=== PATIENT | male | born 1990 | race Caucasian/White ===

== ENCOUNTER 2020-08-02 10:42 | Outpatient (CLI) | payer BC, SELFPAY ==
--- NOTE | ~2020-08-02 | XR_ITS ---
EXAMINATION: XR knee LT 3V DATE: 08/02/2020 11:18 INDICATION: Left knee pain. TECHNIQUE: 3 views of left knee were obtained. COMPARISON: None. FINDINGS: Bone alignment is normal. No fracture. There is mild tricompartmental osteoarthritis. There is a small knee joint effusion. IMPRESSION: 1. Mild left knee osteoarthritis. 2. Small left knee joint effusion. Reviewed, dictated and finalized at location A.
--- NOTE | ~2020-08-02 | XR_ITS ---
XR shoulder LT min 2V DATE: 08/02/2020 11:18 INDICATION: Left shoulder pain for 6 weeks TECHNIQUE: 4 views COMPARISON: None FINDINGS: No fracture or dislocation, periosteal reaction or bone destruction. Normal alignment at th e acromioclavicular and glenohumeral joints. No abnormal soft tissue calcification is evident. IMPRESSION: Negative Reviewed, dictated and finalized at location B. IMPRESSION: Negative
== END 2020-08-02 10:43 | disposition home or self-care (01) ==
LOC: CHSIMG 10:43
PROVIDERS: PCP Internal Medicine; Visit Provider Internal Medicine
DX: M25.512 Pain in left shoulder (principal); M25.562 Pain in left knee
CPT/HCPCS: 73030; 73562

== ENCOUNTER 2020-09-05 08:58 | Outpatient (CLI) | payer BC, SELFPAY ==
--- NOTE | ~2020-09-05 | MR_ITS ---
EXAMINATION: MR knee LT wo con DATE: 09/05/2020 09:52 INDICATION: Left knee pain TECHNIQUE: Magnetic resonance imaging (MRI) of the left knee was performed without intravenous contra st. Sequences included coronal PD-weighted FSE, coronal PD-weighted FS FSE, sagittal T2-weighted FSE , sagittal PD-weighted FS FSE and axial PD weighted fat saturated FSE. COMPARISON: None. FINDINGS: Medial compartment: Complex tear at the posterior horn of the medial meniscus. There is deep chondral ulceration with und erlying subarticular edema at the central weightbearing medial femoral condyle overlying the posterio r horn of the medial meniscus as well as along the posterior margin of the medial tibial plateau also underlying the posterior horn of the meniscus. There is subtle cortical irregularity associated with the region of ulceration at the femoral condyle. Lateral compartment: Lateral meniscus is normal. Articular cartilage is normal. Patellofemoral compartment: Articular cartilage is normal. Ligaments and tendons: Anterior cruciate ligament is essentially absent which could represent sequela of chronic tear. The p osterior cruciate ligament is normal. The medial collateral ligament and fibular collateral ligament complex are normal. The extensor mechanism is normal. The visualized medial and lateral hamstring ten dons as well as the iliotibial band are normal. Fluid: Physiologic amount of fluid in the joint space. No loose osteochondral bodies identified. Osseous/other: Normal marrow signal aside from the subarticular edema in the medial compartment. No fracture or path ologic marrow replacing process. IMPRESSION: 1. Absent anterior cruciate ligament suggesting chronic tear. 2. Complex tear at the posterior horn of the medial meniscus with regions of high-grade chondromalaci a at the medial tibial plateau and weightbearing medial femoral condyle on either side of the torn me niscus. Reviewed, dictated and finalized at location A. [employer] IMPRESSION: 1. Absent anterior cruciate ligament suggesting chronic tear. 2. Complex tear at the posterior horn of the medial meniscus with regions of hi gh-grade chondromalacia at the medial tibial plateau and weightbearing medial f emoral condyle on either side of the torn meniscus.
== END 2020-09-05 08:59 | disposition home or self-care (01) ==
LOC: CHSIMG 09:00
PROVIDERS: PCP Internal Medicine; Visit Provider Internal Medicine
DX: M25.562 Pain in left knee (principal); S83.232A Complex tear of medial meniscus, current injury, left knee, initial encounter
CPT/HCPCS: 73721

== ENCOUNTER 2022-01-28 07:32 | Outpatient (CLI) | payer BC, SELFPAY ==
--- NOTE | ~2022-01-28 | MR_ITS ---
EXAMINATION: MR foot LT wo con DATE: 01/28/2022 08:39 INDICATION: Left foot pain plantar to the head of the fourth metatarsal TECHNIQUE: Magnetic resonance imaging (MRI) of the left fore/mid foot was performed without intraveno us contrast. Sequences included sagittal T1-weighted FSE, sagittal fluid sensitive FSE STIR, coronal PD-weighted FS FSE, coronal T1-weighted FSE, axial PD-weighted FS FSE, and axial PD-weighted FSE. COMPARISON: None FINDINGS: Alignment is normal. Normal bone marrow signal with no fracture or pathologic marrow replacing proces s. Mild osteoarthritis with tiny marginal osteophytes at the first metatarsophalangeal and first-four th tarsal metatarsal joints. No cortical erosions or periosteal reaction. Lisfranc ligament complex a nd the collateral ligament complex at the metatarsophalangeal and interphalangeal joints are normal. Subtle feathery edema along the proximal aspect of the plantar intraosseous muscle measuring between the base of the third and fourth metatarsals consistent with low-grade strain. The flexor and extenso r tendons are normal. No joint effusions, bursitis, tenosynovitis or other abnormal fluid collections . IMPRESSION: 1. Low-grade strain of the plantar interosseous muscle near its origin between the base of the third and fourth metatarsals. 2. Mild polyarticular osteoarthritis at the first metatarsophalangeal and several carpal metacarpal j oints. Reviewed, dictated and finalized at location A. IMPRESSION: 1. Low-grade strain of the plantar interosseous muscle near its origin between the base of the third and fourth metatarsals. 2. Mild polyarticular osteoarthritis at the first metatarsophalangeal and sever al carpal metacarpal joints.
== END 2022-01-28 07:33 | disposition home or self-care (01) ==
LOC: CHSIMG 07:33
PROVIDERS: PCP Internal Medicine; Visit Provider Internal Medicine
DX: M79.672 Pain in left foot (principal)
CPT/HCPCS: 73718

== ENCOUNTER 2024-03-04 11:33 | Outpatient (CLI) | payer OTHER, SELFPAY ==
--- NOTE | 2024-03-08 09:42 | WPDHOLTEREM ---
Holter/Event Monitor Holter/Event Monitor Date of procedure: 03/04/24 Holter/Event Procedure: 24 Hr Holter Monitor Indications: Palpitations Conclusion: 1. 24 hour holter monitor on 03/04/24. 2. Underlying rhythm is sinus rhythm. HR range 31-146 bpm; average 64 bpm. 31 bpm was at 03:44. 146 bpm was at 16:07. 3. There are 174 premature supraventricular complexes, 23 supraventricular couplets, 4 supraventricular bigeminy and 3 supraventricular trigeminy. No supraventricular tachycardia. 4. There are 22 premature ventricular complexes. No ventricular tachycardia. 5. No sinoatrial or atrioventricular blocks. No significant pauses greater than 2 seconds. 6. Patient reports symptoms of weird beats which demonstrate sinus rhythm, HR range 82-109 bpm and 1 PVC.
== END 2024-03-04 11:34 | disposition home or self-care (01) ==
LOC: CHSCARD 11:42
PROVIDERS: PCP Internal Medicine; Visit Provider Internal Medicine
DX: R00.1 Bradycardia, unspecified (principal); R94.31 Abnormal electrocardiogram [ECG] [EKG]
CPT/HCPCS: 93225; 93226

== ENCOUNTER 2024-03-07 09:16 | Outpatient (CLI) | payer OTHER, SELFPAY ==
--- NOTE | 2024-03-07 09:21 | ECHO_ITS ---
Patient Info Name: Wesly Rader Age: 33 years : 1990 Gender: Male Ht: 70 in Wt: 269 lbs BSA: 2.51 m2 HR: 58 bpm BP: 152 / 94 mmHg Heart Rhythm: Sinus Rhythm Technical Quality: Good Exam Date: 03/07/2024 9:25 AM Exam Location: Echo Lab Patient Status: Outpatient Admit Date: 03/07/2024 Staff Ordering Physician: Manuel Pollard MD Sc[employer] Pads Supervisor: Bryce Quiroz RDCS Attending Provider: Manuel Pollard MD Exam Type: CA echo doppler color flow Study Info Indications - PALPATATION, SINUS CATALINA CARDIA abn EKG Complete two-dimensional, color flow and Doppler transthoracic echocardiogram is performed. Summary 1. Complete two-dimensional, color flow and Doppler transthoracic echocardiogram is performed. 2. Left ventricular chamber dimension is normal. 3. Left ventricular systolic function is normal, estimated at 60-65%. 4. The left ventricular diastolic function is normal. 5. E/e' 8 is minimally elevated. 6. There is trace tricuspid valve regurgitation. 7. No pulmonary hypertension, estimated pulmonary arterial systolic pressure is 11 mmHg. Left Ventricle Left ventricular chamber dimension is normal. Left ventricular systolic function is normal, estimated at 60-65%. The left ventricular diastolic function is normal. E/e' 8 is minimally elevated. Right Ventricle Right ventricular systolic function is normal and with normal TAPSE 3.0 cm. Right ventricular chamber dimension is normal. Left Atria Left atrial chamber dimension is normal. Right Atria Right atrial chamber dimension is normal. Aortic Valve The aortic valve is trileaflet. There is no aortic valve stenosis. There is no aortic valve regurgitation. Pulmonic Valve There is no pulmonic regurgitation. Mitral Valve There is no mitral valve stenosis. There is no mitral valve regurgitation. Tricuspid Valve No pulmonary hypertension, estimated pulmonary arterial systolic pressure is 11 mmHg. There is trace tricuspid valve regurgitation. Pericardium/Pleural There is no pericardial effusion. Inferior Vena Cava Normal inferior vena cava with >50% collapse upon inspiration consistent with normal right atrial pressure, 5 mmHg. Aorta The aortic root size at the sinus of Valsalva is normal. Tricuspid Valve Name Value Normal Estimated PAP/RSVP RA Pressure 5 mmHg <=5 Report Signatures
== END 2024-03-07 09:17 | disposition home or self-care (01) ==
PROVIDERS: PCP Internal Medicine; Visit Provider Internal Medicine
DX: R00.2 Palpitations (principal); R94.31 Abnormal electrocardiogram [ECG] [EKG]
CPT/HCPCS: 93306

== ENCOUNTER 2024-03-31 09:24 | Outpatient (CLI) | payer OTHER, SELFPAY | END 2024-03-31 09:25 | disposition home or self-care (01) | LOC: CHSIMG 09:25 | PROVIDERS: PCP Internal Medicine; Visit Provider Internal Medicine | DX: M25.562 Pain in left knee (principal); Z98.890 Other specified postprocedural states | CPT/HCPCS: 73564 ==

== ENCOUNTER 2025-02-08 14:18 | Outpatient (CLI) | payer OTHER, SELFPAY ==
--- NOTE | ~2025-02-08 | XR_ITS ---
XR hand RT min 3V Ordering provider: Manuel Pollard MD History: . R hand 4th flexor tendon injury . Comparison: None. FINDINGS: BONES: No acute fracture or dislocation. JOINT SPACES: Slightly Increased flexion at the distal interphalangeal joint of the fourth finger com pared to the fingers. SOFT TISSUES: Normal. IMPRESSION: No definite acute osseous abnormality right hand. Reviewed, dictated and finalized at location A.
--- OUTSIDE RECORDS SUMMARY | 2025-02-08 15:58 | XMS_ITS | Clinical Summary ---
Author Organization [facility] Address [address] [place] [address] Care Team Providers Care Linen Grader Name Role Phone Manuel Pollard MD Primary Care Provider [phone] Allergies No known active allergies Medications HYDROcodone-florinda taminophen 5-325 MG tabletIndicatio ns:Acute Pain < 7 Day Supply Take 1 tablet by mouth every 4 (four) hours as needed for Pain. 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 30 tablet 2 10/17/2020 Active Active Problems Problem Noted Date Diagnosed Date Aftercare following surgery 10/17/2020 Complex tear of medial menis cus of left knee as current injury, initial encounter 09/12/2020 Old complete tear of anterio r cruciate ligament of left knee 09/12/2020 Family History Medical History Relation Comments Hypertension Father Cancer Maternal Grandfather Cancer Maternal Grandmother Diabetes Maternal Grandmother Hypertension Maternal Grandmother No Known Problems Mother Alzheimers Paternal Grandfather Cancer Paternal Grandfather No Known Problems Paternal Grandmother No Known Problems Sister Relation Status Comments Father Alive Maternal Grandfather Maternal Grandmother Mother Alive Paternal Grandfather Paternal Grandmother Alive Sister Alive Social History Tobacco Use Types Packs/Day Years Used Date Smoking Tobacco: Former Cigarettes Q uit: 2013 Smokeless Tobacco: Current Chew Alcohol Use Standard Drinks/Week Comments Not Currently 0 (1 standard drink = 0.6 oz pur e alcohol) Sex and Gender Information Value Date Recorded Sex Assigned at Not on file Legal Sex 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 Gender Identity Not on file Sexual Orientation Not on file Last Filed Vital Signs Vital Sign Reading Time Taken Comments Blood Pressure 170/85 09/24/2020 3:47 PM CURING OVEN TENDER Pulse 84 09/24/2020 3:47 PM CURING OVEN TENDER Temperature 36.8 C (98.2 F) 09/24/2020 3:47 PM CURING OVEN TENDER Respiratory Rate 20 09/24/2020 3:47 PM CURING OVEN TENDER Oxygen Saturation 95% 09/24/2020 3:47 PM CURING OVEN TENDER Inhaled Oxygen Concentration - - Weight 122.5 kg (270 lb) 11/07/2020 8:48 AM CURING OVEN TENDER Height 180.3 cm (5' 11 ) 11/07/2020 8:48 AM CURING OVEN TENDER Body Mass Index 37.66 11/07/2020 8:48 AM CURING OVEN TENDER Plan of Treatment Health Maintenance Due Date Last Done Comments Annual Physical 1993 Hepatitis C 2008 DTaP, Tdap and Td Vaccines (1 - Tdap) 2009 09/18/1995, 11/16/1992, 06/17/1991, Additional history exists Hepatitis B Vaccines (1 of 3 - 19+ 3-dose series) 2009 COVID-19 Vaccine ( - 2023- season) 2024 HPV Vaccines Aged Out No longer eligi ble based on patient's age to complete this topic Meningococcal B Vaccine Aged Out No l onger eligible based on patient's age to complete this topic Meningococcal Vaccine Aged Out No keaton harpreet eligible based on patient's age to complete this topic Pneumococcal Vaccine: Pediatrics (0 to 5 Years) and At-Risk Patients (6 to 64 Years) Aged Out No longer eligible based on patient's age to complete this topic RSV Immunizations Under 20 Months Aged Out No longer eligible based on patient's age to complete this topic Insurance [facility] Care Teams Linen Grader Relationship Specialty Start Date End Date Manuel Pollard MD [address] [place] [address] PCP - General INTERNAL MEDICINE 09/06/20
--- OUTSIDE RECORDS SUMMARY | 2025-02-08 15:58 | XMS_ITS | Encounter Summary ---
Author Organization [facility] Address [address] [place] [address] Care Team Providers Care System Manager Name Role Phone Manuel Pollard MD Primary Care Provider [phone] Encounter Details Date Type Department Care Team (Late st Contact Info) Description 01/24/2022 [employer] Message [facility] Patient Accounts [address] [place] [address] [facility] Provider [employer] Social History Tobacco Use Types Packs/Day Years Used Date Smoking Tobacco: Former Cigarettes Q uit: 2013 Smokeless Tobacco: Current Chew Alcohol Use Standard Drinks/Week Comments Not Currently 0 (1 standard drink = 0.6 oz pur e alcohol) Sex and Gender Information Value Date Recorded Sex Assigned at Not on file Legal 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
== END 2025-02-08 14:19 | disposition home or self-care (01) ==
LOC: CHSIMG 14:20
PROVIDERS: PCP Internal Medicine; Visit Provider Internal Medicine
DX: S69.81XA Other specified injuries of right wrist, hand and finger(s), initial encounter (principal)
CPT/HCPCS: 73130